=== PATIENT | female | born 1950 | race Caucasian/White ===

== ENCOUNTER 2018-03-12 14:58 | Emergency (ER) | payer MEDICARE, MEDICAID ==
[~2018-03-12] VITALS: Ht 165.1 cm; Wt 75.0 kg
[~2018-03-12 14:58] MED LIST: ADULT ASA81 MG OR; AMLODIPINE10 MG OR; CLARITIN RDT10 MG OR; CRESTOR20 MG PO; CRESTOR5 MG OR; CYMBALTA30 MG PO; ELAVIL25 MG PO; FERROUS SULF325 M1 PO; GABAPENTIN300 MG PO; GLIMEPIRIDE1 MG PO; INDOCIN50 MG/CAP PO; LASIX 40 MG TAB40 MG PO; LEVEMIR1000 UNITS SC; LEVOTHROID75 MCG PO; LISINOPRIL10 MG PO; LOPID600 MG PO; LOPRESSOR 550 MG/TAB PO; LOPRESSOR50 MG PO; LORTAB 10-325 M1 TAB PO; LORTAB5 PO; METFORMIN500 MG PO; METOPROLOL50 MG OR; NAPROSYN500 MG OR; PLAVIX75 MG OR; PROTONIX40 MG; SPIRONOLACTONE50 MG PO; ZYLOPRIM100 MG PO
[2018-03-12] MEDS ORDERED: LIPITOR20 M1 PO (15:18)
[2018-03-12] MEDS ORDERED: LORTAB 1010 MG PO (15:41)
[2018-03-12 15:47] VITALS: BP 167/77
== END 2018-03-12 16:01 | disposition home or self-care (01) ==
LOC: ED 14:58
DX: E11.42 Type 2 diabetes mellitus with diabetic polyneuropathy (principal); I10 Essential (primary) hypertension; Z86.73 Personal history of transient ischemic attack (TIA), and cerebral infarction without residual deficits

== ENCOUNTER 2018-06-09 11:24 | Emergency (ER) | payer MEDICARE, OTHER ==
[~2018-06-09] VITALS: Ht 160 cm; Wt 80.0 kg
[~2018-06-09 11:24] MED LIST changes: +LIPITOR20 M1 PO; +LORTAB 1010 MG PO
[2018-06-09 12:12] VITALS: BP 157/87
== END 2018-06-09 12:16 | disposition home or self-care (01) ==
LOC: ED 11:24
DX: I73.9 Peripheral vascular disease, unspecified (principal); I62.9 Nontraumatic intracranial hemorrhage, unspecified; G83.10 Monoplegia of lower limb affecting unspecified side; I10 Essential (primary) hypertension

== ENCOUNTER 2023-11-18 12:00 | Inpatient (IN) | payer MEDICARE, MEDICAID ==
[~2023-11-18] VITALS: Ht 160 cm; Wt 58.4 kg
[2023-11-18] VITALS (28 sets, daily range): BP systolic 115–161; BP diastolic 42–113
--- NOTE | 2023-11-18 12:07 | NUR ---
PT TO ER ROOM 4 VIA WHEELCHAIR.
[2023-11-18 12:42] LABS: BASO% 0.4 % (0-3); HEMATOCRIT 26.9 % (37.0-47.0); HEMOGLOBIN 8.7 g/dl (12.0-16.0); IMMATURE GRANULOCYTES 0.4 % (0.0-5.0); LYMPH% 6.5 % (15-41); MEAN CELL VOLUME 86.8 fL CALC (80.0-100.0); MEAN CORPUSCULAR HGB 28.1 pG CALC (26.0-32.0); MEAN CORPUSCULAR HGB CONC 32.3 g/dL CAL (32.0-36.0); MONO% 10.7 % (2-13); NEUT# 8.29 thou/uL (2.00-7.15); RED BLOOD COUNT 3.1 mill/uL (4.20-5.60); RED CELL DISTRI WIDTH 18.3 % (11.5-15.5)
[2023-11-18 13:05] LABS: ALBUMIN 4.6 g/dL (3.2-5.0); BILIRUBIN, TOTAL 0.4 mg/dL (0.02-1.3); CREATININE 1.8 mg/dL (0.5-1.0); TOTAL PROTEIN 7.6 g/dL (6.3-8.2)
--- NOTE | 2023-11-18 13:10 | NUR ---
PT TO ER BATHROOM WITH ASSISTANCE VIA WHEELCHAIR. HAT PLACED IN TOILET. PT MISSED HAT. URINE SAMPLE NOT COLLECTED.
[2023-11-18] MEDS ORDERED: SODIUM CHLORIDE 0.9% 1,000 ML IV ONE ×2 (13:45→15:15)
--- NOTE | 2023-11-18 14:08 | NUR ---
PT MEDICATED PEREMAR. ICE CHIPS PROVIDED. PT EDUCATED ON THE NEED FOR A URINE SAMPLE.
--- NOTE | 2023-11-18 15:20 | NUR ---
PATIENT AWAKE, ALERT AND STABLE. NO DISTRESS NOTED. PATIENT IS RESTING IN BED. WILL CONTINUE TO [facility].
[2023-11-18] MEDS ORDERED: ONDANSETRON HCl 4 MG/2 ML SDV IV ONE (15:45)
[2023-11-18 15:54] LABS: URINE BILIRUBIN - DIPSTICK Negative (NEGATIVE); URINE BLOOD DIPSTICK Small (NEGATIVE); URINE GLUCOSE - DIPSTICK Negative (NEGATIVE); URINE KETONE Negative (NEGATIVE); URINE LEUK ESTERASE Negative (NEGATIVE); URINE NITRITE - DIPSTICK Negative (Negative); URINE PH 5.5 (4.5-8.0); URINE PROTEIN - DIPSTICK Trace mg/dL (NEG-TRACE); URINE SPECIFIC GRAVITY 1.015; URINE UROBILINOGEN - DIPSTICK 0.2 E.U./dL (0.2)
[2023-11-18 15:55] LABS: URINE COLOR Yellow; URINE SQUAMOUS EPITHELIAL CELL FEW EPI/hpf (0-FEW); URINE WBC 0-2 WBC/hpf (0-5)
[2023-11-18 16:16] LABS: CREATININE 1.5 mg/dL (0.5-1.0); POTASSIUM 4.7 mmol/l (3.5-5.1)
--- NOTE | 2023-11-18 16:30 | NUR ---
PATIENT AWAKE, ALERT AND STABLE. NO DISTRESS NOTED. PATIENT ASSISTED TO RESTROOM BY NURSE. PATIENT DOES NEED STAND BY ASSIST. PATIENT WAS BLADDER SCANNED AFTER VOID RESULTING IN 8ML OF URINE.
[2023-11-18] MEDS ORDERED: Pantoprazole Sodium 40 MG VIAL (Protonix) IV ONE (16:40)
[2023-11-18] MEDS ORDERED: PROMETHAZINE HCL 25 MG/ML AMP IM ONE (16:55)
[2023-11-18] MEDS ORDERED: SODIUM CHLORIDE 0.9% 1,000 ML IV PRN (17:35)
[2023-11-18] MEDS ORDERED: ACETAMINOPHEN 325 MG/TAB PO PRN (17:35)
[2023-11-18] MEDS ORDERED: MAGNESIUM HYDROXIDE 30 ML UDC PO PRN (17:35)
--- NOTE | 2023-11-18 17:48 | NUR ---
PATIENT AWAKE, ALERT AND STABLE. NO DISTRESS NOTED. PATIENT DENIES ANY PAIN CURRENTLY. PATIENT DOES MOAN BUT STATES THAT SHE ALWAYS DOES THIS. VITALS WNL. WILL CONTINUE TO MONITOR.
--- NOTE | 2023-11-18 18:53 | NUR ---
REPORT RECEIVED FROM ER NURSE GOYO. PATIENT ARRIVED TO ROOM 277 VIA WHEELCHAIR AT 1830. PATIENT IS ALERT AND ORIENTED AND ABLE TO MAKE NEEDS KNOWN. ORIENTED TO ROOM AND CALL LIGHT. CAREGIVER AT BEDSIDE. ALLERGY BRACELET PLACED. ASSISTED TO BATHROOM X2 STAFF. PATIENT STATES TAHT SHE USES A WALKER AT HOME. DENIES PAIN OR DISCOMFORT. CURRENTLY ON IV PROTONIX. SKIN INTACT. CALL LIGHT WITHIN REACH.
[2023-11-18] MEDS ORDERED: SODIUM CHLORIDE 0.9% 500 ML IV ONE (19:20)
[2023-11-18] MEDS ORDERED: PREGABALIN150 MG PO (19:53)
[2023-11-18] MEDS ORDERED: TOPROL XL25 MG PO (19:54)
--- NOTE | 2023-11-18 20:00 | NUR ---
STARTED A NEW IV LINE 22 ON LFA PATENT FLSUHES WELL.CONSENT FOR BLOOD TRANSFUSION SECURED.
--- NOTE | 2023-11-18 20:00 | NUR ---
CONSENT FOR TRANFUSION SECURED.
--- NOTE | 2023-11-18 20:05 | NUR ---
PHLEMOTOMIST IN ROOM FOR HER BLOOD BAND
[2023-11-18] MEDS ORDERED: PREGABALIN 50 MG/CAP PO SCH (21:02)
[2023-11-18] MEDS ORDERED: ATORVASTATIN CALCIUM 20 MG/TAB PO SCH (21:23)
[2023-11-18] MEDS ORDERED: ONDANSETRON HCl 4 MG/2 ML SDV IV PRN (22:20)
--- NOTE | 2023-11-18 22:42 | NUR ---
1ST UNIT OF PRB STARTED AT THIS TIME. PATIENT V/S SECURED PRIOR TO TRANSFUSION. BLOOD VERIFIED WITH ANOTHER NURSE.
[2023-11-19] VITALS (10 sets, daily range): BP systolic 93–115; BP diastolic 35–56
--- NOTE | 2023-11-19 00:22 | NUR ---
STILL ONGOING UBIT OF BLOOD H/H CANCELLED
--- NOTE | 2023-11-19 04:08 | NUR ---
PATIENT RESTING IN BED, EYES CLOSED, RESTING ON RT SIDE CALL LIGHT IN REACHED.BED ALARM IN PLCED.
[2023-11-19 05:51] LABS: HEMATOCRIT 28.7 % (37.0-47.0); HEMOGLOBIN 9.2 g/dl (12.0-16.0); MEAN CELL VOLUME 89.7 fL CALC (80.0-100.0); MEAN CORPUSCULAR HGB 28.8 pG CALC (26.0-32.0); MEAN CORPUSCULAR HGB CONC 32.1 g/dL CAL (32.0-36.0); RED BLOOD COUNT 3.2 mill/uL (4.20-5.60)
[2023-11-19] MEDS ORDERED: LEVOTHYROXINE SODIUM 75 MCG/TAB PO SCH (06:00)
[2023-11-19 06:02] LABS: ALBUMIN 3.8 g/dL (3.2-5.0); CREATININE 1.4 mg/dL (0.5-1.0); MAGNESIUM 1.8 mg/dL (1.6-2.3); TOTAL PROTEIN 6.4 g/dL (6.3-8.2)
[2023-11-19 06:03] LABS: BILIRUBIN, TOTAL 0.6 mg/dL (0.02-1.3)
--- NOTE | 2023-11-19 07:45 | NUR ---
SHIFT CHANGE REPORT, PT SLEEPING BUT AROUSES TO VERBAL STIMULI, DENIES PAIN BUT C/O MILD NAUSEA AT THIS TIME, ALSO CO PRESSURE PAIN TO LOWER ABD DURING URINATION, IVF INFUSING, TELE MONITOR IN PLACE, CALL FIGUEREDO IN REACH AND BED LOCKED IN LOWEST POSITION.
[2023-11-19] MEDS ORDERED: METOPROLOL SUCCINATE 25 MG/TAB-TOPROL XL PO SCH (09:00)
--- NOTE | 2023-11-19 12:00 | NUR ---
UP TO RECLINER FOR MEAL, ALL NEEDS ADDRESSED, CALL FIGUEREDO IN REACH.
[2023-11-19 12:19] LABS: HEMATOCRIT 26.5 % (37.0-47.0); HEMOGLOBIN 8.9 g/dl (12.0-16.0)
--- NOTE | 2023-11-19 16:10 | NUR ---
SLEEPING AT THIS TIME, NO SIGN DISCOMFORT, CALL FIGUEREDO IN REACH
[2023-11-19 19:41] LABS: HEMATOCRIT 31.4 % (37.0-47.0); HEMOGLOBIN 9.8 g/dl (12.0-16.0)
--- NOTE | 2023-11-19 21:16 | NUR ---
277 Glucose:170
[2023-11-20] VITALS (20 sets, daily range): BP systolic 86–158; BP diastolic 35–79
[2023-11-20 05:00] LABS: BASO% 0.3 % (0-3); EOS% 0.6 % (0-8); IMMATURE GRANULOCYTES 0.3 % (0.0-5.0); LYMPH% 22.7 % (15-41); MEAN CELL VOLUME 90.9 fL CALC (80.0-100.0); MEAN CORPUSCULAR HGB 30.3 pG CALC (26.0-32.0); MEAN CORPUSCULAR HGB CONC 33.3 g/dL CAL (32.0-36.0); MONO% 13.7 % (2-13); NEUT# 4.37 thou/uL (2.00-7.15); NEUT% 62.4 % (42-76); RED BLOOD COUNT 2.54 mill/uL (4.20-5.60); RED CELL DISTRI WIDTH 17.4 % (11.5-15.5)
[2023-11-20 05:13] LABS: HEMATOCRIT 23.1 % (37.0-47.0); HEMOGLOBIN 7.7 g/dl (12.0-16.0)
[2023-11-20 05:20] LABS: CREATININE 1.1 mg/dL (0.5-1.0); MAGNESIUM 1.6 mg/dL (1.6-2.3); POTASSIUM 3.3 mmol/l (3.5-5.1)
[2023-11-20 05:23] LABS: ALBUMIN 2.9 g/dL (3.2-5.0); BILIRUBIN, TOTAL 0.3 mg/dL (0.02-1.3)
--- NOTE | 2023-11-20 07:00 | NUR ---
patyient refused vital signs, nurse notified.
--- NOTE | 2023-11-20 07:18 | NUR ---
SHIFT CHANGE REPORT, PT SLEEPING BUT AROUSES TO VERBAL ATIMULI, REFUSED TO HAVE VITAL SIGNS TAKEN BY ICEBOX WORKER. OR TEAM HERE AT THIS TIME TO RECEIVE PT, NURSE MEASURED VITAL SIGNS AND RECORDED. OR STAFF ASSISTED PT TO STRETCHER AND OFF TO OR AT THIS TIME. PT WAS ORIENTED WHEN SHE AWOKE AND KNEW OF HER SCHEDULED PROCEDURE.
[2023-11-20] MEDS ORDERED: SODIUM CHLORIDE 0.9% 500 ML IV PRN (08:25)
[2023-11-20] MEDS ORDERED: PANTOPRAZOLE SODIUM Sesquihydr 40 MG/TAB PO SCH (10:00)
--- NOTE | 2023-11-20 10:19 | NUR ---
TRANSPORTED BACK TO UNIT AT THIS TIME AND SETTLED IN BED, REPORT RECEIVED FROM PACU NURSE. PT DENIES DISCOMFORT WITH THE EXCEPTION SHE IS HUNGRY AND WANTS SOMETHING TO EAT, SNACK GIVEN
[2023-11-20] MEDS ORDERED: FUROSEMIDE 40 MG/4 ML SDV IV PRN (10:35)
[2023-11-20] MEDS ORDERED: DOCUSATE CALCIUM 240 MG/CAP PO SCH (11:00)
[2023-11-20] MEDS ORDERED: GLYCOPYRROLATE 0.2 MG/ML IV ONE (12:04)
[2023-11-20] MEDS ORDERED: LIDOCAINE HCL 2% 2ML SDV IV ONE (12:04)
[2023-11-20] MEDS ORDERED: PROPOFOL 200 MG/20 ML VIAL IV ONE (12:04)
[2023-11-20] MEDS ORDERED: ePHEDrine SULFATE 50 MG/ML AMP IV ONE (12:04)
--- NOTE | 2023-11-20 13:24 | NUR ---
BLOOD TRANSFUSING AT THIS TIME, PT TOLERATED FIRST 15 MINS WITHOUT DISCOMFORT/ADVERSE EFFECTS.
[2023-11-20] MEDS ORDERED: Peg 3350-POTASSIUM CHLORIDE-So 4,000 ML BTL PO SCH (14:00)
--- NOTE | 2023-11-20 15:53 | NUR ---
PN FIRST UNIT TRANSFUSED, WELL TOLERATED. PT RELUCTANT TO START NULITELY BUT EDUCATED ON IMPORTANCE OF HAVING THIS MED. SHE WILL NEED MUCH CUING WHICH STAFF WILL GIVE WHILE MONITORING. UP TO BSC AT THIS TIME, CALL FIGUEREDO IN REACH.
--- NOTE | 2023-11-20 17:58 | NUR ---
PT REQUESTING NOT TO HAVE MALE STAFF ASSIST WITH PERSONAL CARE SHE JUST CANT URINATE WITH ANYONE IN HER ROOM AND ESPECIALLY A MALE, ADVISED WILL PASS INFO ON TO HS NURSES BUT WE DO HAVE MALE ASSISTANTS WHO WORK ALONGSIDE WITH FEMALE NURSES AND WE ALSO HAVE MALE NURSES SOMETIMES.
--- NOTE | 2023-11-20 20:00 | NUR ---
PT RESTING IN BED NO DISTRESS NOTED ON ASSESSMENT. NURSE NOTICED THAT PATIENT HAD ONLY DRINKED LESS THAN A TWO SMALL CUPS OF THE GOLYTELY. PT EDUCATED ON THE IMPORTANCE OF FINISHING THE MEDICATION IN ABOUT AN HOUR FROM STARTING IT. PT STATED THAT SHE WOULD TRY AND DRINK AT A FASTER PACE. IV SITE FLUSHED WORKING PROPERLY NS INFUSION ONGOING AT 100ML/HR. PT HAS A SMALL SKIN TEAR ON LEFT ELBOW NURSE CLEANED IT AND PLACED A DRESSING. CALL LIGHT WITHIN REACH. PLAN OF CARE ONGOING.
[2023-11-20 20:36] LABS: HEMATOCRIT 36.1 % (37.0-47.0); HEMOGLOBIN 11.8 g/dl (12.0-16.0)
--- NOTE | 2023-11-20 21:00 | NUR ---
NURSE ENCOURAGED PT AGAIN TO PLEASE FINISH THE GOLYTELY BUT STATED SHE IS TRING. NURSE INFORM PT AGAIN HOW IMPORTANT IT WAS FOR HER TO FINISH THE DRINK TO HAVE TO PROCEDURE IN THE MORNING.
--- NOTE | 2023-11-20 22:00 | NUR ---
NURSE ENCOURAGE PT AGAIN TO FINISHE THE GOLYTLEY. PT STATED AGAIN SHE UNDERSTOOD.
--- NOTE | 2023-11-21 00:07 | NUR ---
PT UPSET THAT THE STAFF KEEPS ASKING HER TO FINISH THE GOLYTELY BUT HAS NOT HAD A BM YET. PT EDUCATED ON THE IMPORTANCE OF HAVING THIS PROCEDURE.
--- NOTE | 2023-11-21 01:21 | NUR ---
HELPED PT TO BSC STILL NO BM. HAD PT DRINK MORE OF THE GOLYTELY.
[2023-11-21 02:55] VITALS: BP 91/42
[2023-11-21 03:02] VITALS: BP 126/60
[2023-11-21 03:51] LABS: BASO% 0.5 % (0-3); EOS% 1.3 % (0-8); HEMATOCRIT 32.3 % (37.0-47.0); HEMOGLOBIN 10.5 g/dl (12.0-16.0); IMMATURE GRANULOCYTES 0.5 % (0.0-5.0); LYMPH% 22.7 % (15-41); MEAN CELL VOLUME 90.5 fL CALC (80.0-100.0); MEAN CORPUSCULAR HGB 29.4 pG CALC (26.0-32.0); MEAN CORPUSCULAR HGB CONC 32.5 g/dL CAL (32.0-36.0); MONO% 14.8 % (2-13); NEUT# 4.57 thou/uL (2.00-7.15); NEUT% 60.2 % (42-76); RED BLOOD COUNT 3.57 mill/uL (4.20-5.60); RED CELL DISTRI WIDTH 17.4 % (11.5-15.5)
[2023-11-21 04:35] LABS: ALBUMIN 3.1 g/dL (3.2-5.0); MAGNESIUM 1.3 mg/dL (1.6-2.3); POTASSIUM 3.2 mmol/l (3.5-5.1); TOTAL PROTEIN 5.3 g/dL (6.3-8.2)
[2023-11-21 04:36] LABS: BILIRUBIN, TOTAL 0.5 mg/dL (0.02-1.3)
--- NOTE | 2023-11-21 06:18 | NUR ---
DR RICHARDS INFORM OF PT NOT FINISHING THE BOWEL PREP AND NOT HAVING A BOWEL MOVEMENT. EVEN AFTER ENCOURAGING HER TO DRINK THE PREP PT STILL REFUSE TO FINISH IT STATING THAT SHE CAN'T DRINK ANYMORE. THAT SHE PROBABLY DOESN'T HAVE ANYTHING TO EXPEL SINCE SHE HASN'T EATEN ANYTHING FOR A COUPLE OF DAYS. NURSE EXPLAIN TO PT THAT SHE STILL SHOULD OF HAD A BOWEL MOVEMENT EVEN IF IT WAS ALL LIQUID. DR RICHARDS REPLIED "WE WILL CANCEL. KEEP ENCOURAGING HER TO DRINK".
[2023-11-21 06:54] VITALS: BP 101/40
[2023-11-21] MEDS ORDERED: POTASSIUM CHLORIDE 20 MEQ/TAB PO SCH (08:30)
[2023-11-21] MEDS ORDERED: MAGNESIUM SULFATE HEPTAHYDRATE 100 ML IV SCH (09:00)
[2023-11-21 10:37] VITALS: BP 122/77
--- NOTE | 2023-11-21 11:12 | NUR ---
PATIENT RESTING IN BED, BED LOCKED AND LOW, CALL LIGHT WITHIN REACH. NO DISTRESS REPORTED OR OBSERVED. PLAN OF CARE REVIEWED WITH PATIENT, QUESTIONS ENCOURAGED AND ANSWERED TO BEST ABILITY WITHIN SCOPE OF PRACTICE. NO FURTHER QUESTIONS AT THIS TIME. PATIENT ENCOURAGED TO REACH OUT TO STAFF IF ANY NEEDS ARISE. WILL CONTINUE TO MONITOR.
[2023-11-21] MEDS ORDERED: MAGNESIUM CITRATE 296 ML/BTL PO SCH (12:00)
[2023-11-21 12:30] LABS: HEMOGLOBIN 10.9 g/dl (12.0-16.0)
[2023-11-21 19:23] VITALS: BP 130/58
--- NOTE | 2023-11-22 01:17 | NUR ---
PT RESTING NO DISTRESS NOTED ON EXAM. CALL LIGHT WITHIN REACH. PLAN OF CARE ONGOING.
[2023-11-22 03:32] VITALS: BP 121/48
--- NOTE | 2023-11-22 04:20 | NUR ---
PT RESTING NO DISTRESS NOTED ON EXAM. PT HAD MULTIPLE BM DURING THE NIGHT. NO PAIN REPORTED. CALL LIGHT WITHIN REACH. PLAN OF CARE ONGOING.
[2023-11-22 06:01] LABS: BASO% 0.5 % (0-3); EOS% 1.2 % (0-8); HEMATOCRIT 31.2 % (37.0-47.0); HEMOGLOBIN 10.2 g/dl (12.0-16.0); IMMATURE GRANULOCYTES 0.3 % (0.0-5.0); MEAN CORPUSCULAR HGB 29.7 pG CALC (26.0-32.0); MEAN CORPUSCULAR HGB CONC 32.7 g/dL CAL (32.0-36.0); MONO% 12.6 % (2-13); NEUT# 3.83 thou/uL (2.00-7.15); NEUT% 59.4 % (42-76); RED BLOOD COUNT 3.43 mill/uL (4.20-5.60); RED CELL DISTRI WIDTH 18.3 % (11.5-15.5)
[2023-11-22 06:36] LABS: ALBUMIN 2.7 g/dL (3.2-5.0); BILIRUBIN, TOTAL 0.4 mg/dL (0.02-1.3); CREATININE 0.8 mg/dL (0.5-1.0); POTASSIUM 3.8 mmol/l (3.5-5.1); TOTAL PROTEIN 4.8 g/dL (6.3-8.2)
[2023-11-22 06:42] LABS: MAGNESIUM 2.6 mg/dL (1.6-2.3)
[2023-11-22 07:19] VITALS: BP 99/45
--- NOTE | 2023-11-22 07:30 | NUR ---
patient assisted to recliner by beth andrade.
--- NOTE | 2023-11-22 08:00 | NUR ---
RECEIVED REPORT FROM NIGHTSHIFT NURSE SHANTI ADRIAN. PT NOTED SITTING UP IN CHAIR, BOWEL PREP DRINK ON BEDSIDE TABLE, PT HAS BEEN DRINKING. PT IS A/OX3, RM AIR, DENIES ANY PAIN AT THIS TIME. ASSESSMENT COMPLETED (SEE NURSING INTERVENTION) IV SITE APPEARS HEALTHY AND INTACT WITH FLUIDS RUNNING PER EMAR. EDUCATED PT ON PLAN OF CARE AND MED SCHEDULE. CALL LIGHT WITHIN REACH AND SAFETY PRECAUTIONS IN PLACE.
[2023-11-22 10:50] VITALS: BP 106/45
--- NOTE | 2023-11-22 11:53 | NUR ---
PT SITTING UP IN CHAIR, EATING LUNCH. DENIES ANY PAIN AT THIS TIME. NO S.S OF DISTRESS. CALL LIGHT WITHIN REACH AND SAFETY PRECAUTIONS IN PLACE.
--- NOTE | 2023-11-22 13:09 | NUR ---
patient requested to get back in bed. patient assisted back to bed.
[2023-11-22 15:26] VITALS: BP 133/60
--- NOTE | 2023-11-22 16:38 | NUR ---
PT LAYING IN BED SUPINE, RESTING COMFORTABLY AT THIS TIME. NO S/S OF DISTRESS. CALL LIGHT WITHIN REACH AND SAFETY PRECAUTIONS IN PLACE.
--- NOTE | 2023-11-22 20:30 | NUR ---
PT RESTING IN BED NO DISTRESS NOTED ON ASSESSMENT. VS WNL ON RA. IV SITE FLUSHED NS INFUSION ONGOING 100ML/HR. SCATTERED BRUISING AND SKIN TEAR ON LEFT ELBOW. PT HAVING DIARRHEA SINCE SHE IS DOING A BOWEL PREP FOR A COLONOSCOPY BUT ITS NOT CLEAR YET. PT REMINDED TO COMPLETE BOWEL PREP. CALL LIGHT WITHIN REACH. PLAN OF CARE ONGOING.
[2023-11-22 23:50] VITALS: BP 99/40
--- NOTE | 2023-11-23 | NUR ---
PT RESTING NO DISTRESS NOTED ON EXAM. IV SITE CHECKED WORKING PROPERLY. CALL LIGHT WITHIN REACH. PLAN OF CARE ONGOING.
--- NOTE | 2023-11-23 04:00 | NUR ---
PT RESTING NO DISTRESS NOTED ON EXAM. CALL LIGHT WITHIN REACH. PLAN OF CARE ONGOING.
[2023-11-23 05:09] VITALS: BP 103/49
[2023-11-23 05:36] LABS: HEMATOCRIT 30.6 % (37.0-47.0); MEAN CELL VOLUME 94.2 fL CALC (80.0-100.0); MEAN CORPUSCULAR HGB 30.8 pG CALC (26.0-32.0); MEAN CORPUSCULAR HGB CONC 32.7 g/dL CAL (32.0-36.0); RED BLOOD COUNT 3.25 mill/uL (4.20-5.60); RED CELL DISTRI WIDTH 18.8 % (11.5-15.5)
[2023-11-23 05:42] LABS: ALBUMIN 2.5 g/dL (3.2-5.0); BILIRUBIN, TOTAL 0.5 mg/dL (0.02-1.3); CREATININE 0.7 mg/dL (0.5-1.0); POTASSIUM 3.7 mmol/l (3.5-5.1); TOTAL PROTEIN 4.7 g/dL (6.3-8.2)
[2023-11-23 07:27] VITALS: BP 132/45
--- NOTE | 2023-11-23 07:30 | NUR ---
patient sitting up in recliner with one person assist.
--- NOTE | 2023-11-23 08:21 | NUR ---
RECEIVED REPORT FROM NIGHTSHIFT NURSE SHANTI ADRIAN. PT NOTED SITTING UP IN CHAIR EATING BREAKFAST, BOWEL PREP ON BEDSIDE TABLE. PT IS A/OX3, RM AIR, DENIES ANY PAIN AT THIS TIME. NURSING ASSESSMENT COMPLETED AND IV SITE APPEARS HEALTHY AND INTACT WITH FLUDIS RUNNING PER EMAR. EDUCATED PT ON PLAN OF CARE, DIET AND MED SCHEDULE. ENCOURAGED PT TO COMPLETE BOWEL PREP TODAY FOR PROCEDURE TOMORROW. PT INDICATED UNDERSTANDING AND STATED "ILL TRY." NO S/S OF DISTRESS AT THIS TIME. CALL LIGHT WITHIN REACH AND SAFETY PRECAUTIONS IN PLACE.
[2023-11-23] MEDS ORDERED: MAGNESIUM CITRATE 296 ML/BTL PO SCH (09:30)
[2023-11-23 10:33] VITALS: BP 130/56
--- NOTE | 2023-11-23 12:00 | NUR ---
PT SITTING UP IN CHAIR, EATING LUNCH AT THIS TIME. DENIES ANY PAIN. NO S/S OF DISTRESS. CALL LIGHT WITHIN REACH AND SAFETY PRECAUTIONS IN PLACE.
[2023-11-23 16:28] VITALS: BP 156/75
--- NOTE | 2023-11-23 17:08 | NUR ---
PT SITTING UP HIGH FOWLERS IN BED, EATING DINNER AT THIS TIME. NO S/S OF DISTRESS. CALL LIGHT WITHIN REACH AND SAFETY PRECAUTIONS IN PLACE.
[2023-11-23 18:52] VITALS: BP 164/66
[2023-11-23 19:00] VITALS: BP 164/66
[2023-11-24] VITALS (13 sets, daily range): BP systolic 135–178; BP diastolic 58–79
--- NOTE | 2023-11-24 04:30 | NUR ---
PT IS SCHEDULE FOR A COLONOSCOPY TODAY. PT STATES SHE AT READY TALK TO DR SIMONS ABOUT THE PROCEDURE, AND HAS NO QOUESTIONS AT THIS TIME, DR CHERY TO OBTAIN CONSENT, CONSENT SIGN BY PT AND PLACE IN FRONT OF CHART. PT CURRENTLY IN BED NO S/S OF DISTRESS NOTED. CALL LIGHT IN REACH AND BED IN LOWSET POSITION.
[2023-11-24 05:00] LABS: HEMATOCRIT 31.3 % (37.0-47.0); HEMOGLOBIN 10.1 g/dl (12.0-16.0); MEAN CELL VOLUME 93.4 fL CALC (80.0-100.0); MEAN CORPUSCULAR HGB 30.1 pG CALC (26.0-32.0); MEAN CORPUSCULAR HGB CONC 32.3 g/dL CAL (32.0-36.0); RED BLOOD COUNT 3.35 mill/uL (4.20-5.60); RED CELL DISTRI WIDTH 18.5 % (11.5-15.5)
[2023-11-24 05:19] LABS: ALBUMIN 2.6 g/dL (3.2-5.0); BILIRUBIN, TOTAL 0.4 mg/dL (0.02-1.3); CREATININE 0.6 mg/dL (0.5-1.0); POTASSIUM 3.4 mmol/l (3.5-5.1); TOTAL PROTEIN 4.7 g/dL (6.3-8.2)
--- NOTE | 2023-11-24 07:23 | NUR ---
PATIENT RESTING IN BED; ROOM AIR; BREATHING UNLABORED AND EVEN; NO S/S OF DISTRESS AT THIS TIME; IVSITE ON LEFT FORARM CLEAN AND INTACT RUNNING WITH NS @20 WITH NO ISSUES; TELE LEADS ARE ATTACHED AND WORKING; PATEINT A/O WHEN I WOKE HER UP; DENIED ANY N/D/V AT THIS TIME; DENIED NEEDING ANYTHING; BRUSING AND DISCOLRATION WAS NOTICED ON HER BILATERAL ARMS; BILATERAL HANDS ARE FUFFY, WHEN ASKED IS THIS NORMAL PATIENT STATED THAT IT HAPPENS ALL THE TIME; ENCOURAGED PATIENT TO ELEVATED THEM; CALL LIGHT WITHIN REACH,VERBALIZED UNDERSTANDING ON HOW TO USE, PERSONAL ITEMS WITHIN REACH BSC NEXT TO BED; BED INLOWEST POSTION; NO COMPLAINTS AT THIS TIME
--- NOTE | 2023-11-24 08:15 | NUR ---
PATEINT WENT TO OR VIA BED
[2023-11-24] MEDS ORDERED: SODIUM CHLORIDE 0.9% 1,000 ML IV ONE (08:17)
[2023-11-24] MEDS ORDERED: FAMOTIDINE 10MG/ML 2ML SDV IV ONE (08:22)
[2023-11-24] MEDS ORDERED: POTASSIUM CHLORIDE 20MEQ 100 ML IV SCH (08:30)
[2023-11-24] MEDS ORDERED: PREGABALIN 75 MG/CAP PO SCH (09:00)
[2023-11-24] MEDS ORDERED: PANTOPRAZOLE SO40 M1 PO (09:50)
[2023-11-24] MEDS ORDERED: STERILE WATER FOR IRRIGATION 1,000 ML BTL IR ONE (09:58)
--- NOTE | 2023-11-24 10:13 | NUR ---
pateint arrived to ms from or; room air breathing unlabored and even; new iv site in left hand runnning with NS @100; tele leads are reapplied; scd attached to patient legs; patient on regular diet; gave her juice and pudding;call light within reach,verbalized understanding ion how to use, personal items within reach,bed in lowest postion, no complaints
[2023-11-24] MEDS ORDERED: GLYCOPYRROLATE 0.2 MG/ML IV ONE (12:08)
[2023-11-24] MEDS ORDERED: LIDOCAINE HCL 2% 2ML SDV IV ONE (12:08)
[2023-11-24] MEDS ORDERED: PROPOFOL 200 MG/20 ML VIAL IV ONE (12:08)
--- NOTE | 2023-11-24 12:13 | NUR ---
patient a/o x3; room air; breathing unlabored and even; denied any n/d/v at this time; ivs site clean and intact running with potassium with no issues; denied any pain at this time; no s/s of distress; pateint laying semi pacheco in bed; call light within reach,verablized understanding on how to use, personal items within reach, bed in lowest postion, no complaints at this time
--- NOTE | 2023-11-24 14:17 | NUR ---
patient is waiting for ride for discharge, states that her ride will not be here into 4pm
--- NOTE | 2023-11-24 16:15 | NUR ---
IV site discontinued, cath intact. No edema , no redness, voices no discomfort. Discharge instructions given. Patient verbalizes understanding of same. Discharged in stable condition via Wheelchair to Home with family. All belongings sent with pt.
== END 2023-11-24 16:16 | DRG 378 ==
LOC: ED 12:00 → ED-I 16:19 → ED 17:26 → MS2 17:27
PROVIDERS: Family Medicine; Nurse Practitioner Family; ADMIT Internal Medicine; ATTEND Internal Medicine
PROC: 30233N1 Transfusion of Nonautologous Red Blood Cells into Peripheral Vein, Percutaneous Approach (ICD-10-PCS; principal; 2023-11-18)
PROC: 30233N1 Transfusion of Nonautologous Red Blood Cells into Peripheral Vein, Percutaneous Approach (ICD-10-PCS; 2023-11-20)
PROC: 30233N1 Transfusion of Nonautologous Red Blood Cells into Peripheral Vein, Percutaneous Approach (ICD-10-PCS; 2023-11-20)
PROC: 0DB98ZX Excision of Duodenum, Via Natural or Artificial Opening Endoscopic, Diagnostic (ICD-10-PCS; 2023-11-20)
PROC: 0DB78ZX Excision of Stomach, Pylorus, Via Natural or Artificial Opening Endoscopic, Diagnostic (ICD-10-PCS; 2023-11-20)
PROC: 0DB58ZX Excision of Esophagus, Via Natural or Artificial Opening Endoscopic, Diagnostic (ICD-10-PCS; 2023-11-20)
PROC: 0DBN8ZX Excision of Sigmoid Colon, Via Natural or Artificial Opening Endoscopic, Diagnostic (ICD-10-PCS; 2023-11-24)
DX: K92.2 Gastrointestinal hemorrhage, unspecified (principal); D62 Acute posthemorrhagic anemia; N17.9 Acute kidney failure, unspecified; K22.10 Ulcer of esophagus without bleeding; K31.7 Polyp of stomach and duodenum; K44.9 Diaphragmatic hernia without obstruction or gangrene; K29.70 Gastritis, unspecified, without bleeding; K63.5 Polyp of colon; K64.8 Other hemorrhoids; K64.4 Residual hemorrhoidal skin tags; I10 Essential (primary) hypertension; E11.9 Type 2 diabetes mellitus without complications; I69.331 Monoplegia of upper limb following cerebral infarction affecting right dominant side; E03.9 Hypothyroidism, unspecified; E78.5 Hyperlipidemia, unspecified; Z79.82 Long term (current) use of aspirin; Z79.02 Long term (current) use of antithrombotics/antiplatelets; Z20.822 Contact with and (suspected) exposure to COVID-19
CPT/HCPCS: J2470; J3475; P9016

== ENCOUNTER 2024-06-20 19:42 | Emergency (ER) | payer MEDICARE, MEDICAID ==
[~2024-06-20] VITALS: Ht 160 cm; Wt 82.0 kg
[2024-06-20] VITALS (9 sets, daily range): BP systolic 101–144; BP diastolic 55–115
[~2024-06-20 19:42] MED LIST changes: +PANTOPRAZOLE SO40 M1 PO; +PREGABALIN150 MG PO; +TOPROL XL25 MG PO
[2024-06-20] MEDS ORDERED: SODIUM CHLORIDE 0.9% 1,000 ML IV STA ×2 (19:53→21:05)
[2024-06-20] MEDS ORDERED: INSULIN REGULAR (HUMAN) 100 UNIT/ML INJ IV STA (19:53)
[2024-06-20] MEDS ORDERED: INSULIN REGULAR (HUMAN) 100 UNIT/ML INJ SC STA (19:53)
[2024-06-20] MEDS ORDERED: PROMETHAZINE HCL 25 MG/ML AMP IV ONE (19:55)
[2024-06-20 20:19] LABS: BASO% 0.3 % (0-3); EOS% 0.5 % (0-8); HEMATOCRIT 37.9 % (37.0-47.0); HEMOGLOBIN 12.3 g/dl (12.0-16.0); IMMATURE GRANULOCYTES 0.8 % (0.0-5.0); LYMPH% 8.6 % (15-41); MEAN CELL VOLUME 83.7 fL CALC (80.0-100.0); MEAN CORPUSCULAR HGB 27.2 pG CALC (26.0-32.0); MEAN CORPUSCULAR HGB CONC 32.5 g/dL CAL (32.0-36.0); NEUT# 8.25 thou/uL (2.00-7.15); NEUT% 81.8 % (42-76); RED BLOOD COUNT 4.53 mill/uL (4.20-5.60); RED CELL DISTRI WIDTH 15.5 % (11.5-15.5)
[2024-06-20] MEDS ORDERED: HYDROmorphone HCL 2 MG/AMP IV STA (20:25)
[2024-06-20 20:30] LABS: BILIRUBIN, TOTAL 0.5 mg/dL (0.02-1.3); CREATININE 0.8 mg/dL (0.5-1.0); POTASSIUM 3.8 mmol/l (3.5-5.1)
[2024-06-20 20:37] LABS: ALBUMIN 3.9 g/dL (3.2-5.0); MAGNESIUM 1.9 mg/dL (1.6-2.3); TOTAL PROTEIN 6.8 g/dL (6.3-8.2)
[2024-06-20] MEDS ORDERED: PROMETHAZINE HY25 M1 PO (23:38)
[2024-06-20] MEDS ORDERED: PROMETHAZINE HCL 25 MG/TAB PO ONE (23:40)
== END 2024-06-20 23:50 | disposition home or self-care (01) ==
LOC: ED 19:42
PROVIDERS: Family Medicine
DX: K52.9 Noninfective gastroenteritis and colitis, unspecified (principal); K85.90 Acute pancreatitis without necrosis or infection, unspecified; K80.20 Calculus of gallbladder without cholecystitis without obstruction; I10 Essential (primary) hypertension; E11.9 Type 2 diabetes mellitus without complications; E78.5 Hyperlipidemia, unspecified; Z86.73 Personal history of transient ischemic attack (TIA), and cerebral infarction without residual deficits; Z20.822 Contact with and (suspected) exposure to COVID-19
CPT/HCPCS: J1171; J2550; Q9967